=== PATIENT | male | born 1940 | race Caucasian/White ===

== ENCOUNTER 2017-01-08 13:04 | Day surgery (SDC) | payer OTHER ==
[~2017-01-08 13:04] MED LIST: ASPI81 PO; CARV6.25 PO; CEPH500C3 PO; DIGO50SO PO; FURO1TAB93 PO; HYDR10TA16 PO; LISI2.5T3 PO; OMEG600C2 PO; PRAV80 OR; SYNT88TA PO; TAB-TAB PO
[2017-01-08] MEDS ORDERED: LIDOCAINE HCL 1% PF 30 ML VIAL ONE (15:42)
--- NOTE | 2017-01-08 15:45 | RADRPT ---
EXAM DATE/TIME: 01/08/2017 13:59 [place] COMPARISON: No previous studies available for comparison. EXTERNAL COMPARISON: [facility], CT SOFT TISSUE NECK,W/ CONTRAST, Dec 20 2016. [facility], US SOFT TISSUE NECK, M arch 2016. INDICATIONS : Midline neck mass. MEDICAL HISTORY : Thyroid disease. CHF. Hypertension. COPD. Dyspnea. GERD. Arthritis. SURGICAL HISTORY : Pacemaker. ENCOUNTER: Initial ACUITY: 2 months PAIN SCORE: 1/10 LOCATION: neckMidline ORGAN: Midline neck SPECIMENS: Four core specimen(s) submitted for pathologic evaluation. DEVICE: 18 gauge Temno needle Post procedure scanning reveals no hematoma or other complication. The possibility does exist that the tissue obtained will be non-diagnostic. If the sample is non-jeffrey gnostic a repeat biopsy or surgical biopsy may need to be performed. TECHNIQUE: 1. Ultrasound guidance for needle biopsy. 2. Needle biopsy. The risks, benefits, and alternatives to ultrasound guided needle biopsy were explained to the patien t in detail including the risk of bleeding and infection. Written and verbal informed consent was ob tained. With the patient on the ultrasound table, images were obtained. There is a solid and cystic mass in the midline neck measuring 3.6 x 3.6 x 3.5 cm. Overlying skin was prepped and draped in the usual marta rile fashion and Lidocaine was utilized as a local anesthetic. Prior to core sample, the cystic portion was aspirated and approximately 5 cc of viscous red material was aspirated. A needle was advanced into the neck mass and 4 core samples were obtained and submitt ed for pathologic evaluation. The patient tolerated the procedure well and left the ultrasound suite in stable condition. CONCLUSION: Uncomplicated ultrasound guided needle biopsy of a midline neck mass. Additionally, aspiration of the fluid portion was performed and approximately 5 cc of viscous reddish fluid was removed. Hunter Bates MD on January 08, 2017 at 15:41 Board Certified Radiologist. This report was verified electronically.
== END 2017-01-08 15:11 | disposition home or self-care (01) ==
LOC: HRAD 13:04 → HRIP 13:30 → HRAD 15:11
DX: C44.42 Squamous cell carcinoma of skin of scalp and neck (principal)
CPT/HCPCS: 10160; 76942; 88112; 88305; 88307; 88341; 88342